=== PATIENT | male | born 1950 | race Hispanic/Latino ===

== ENCOUNTER 2016-12-16 11:54 | Inpatient (IN) | payer MEDICARE ==
[2016-12-16 12:25] VITALS: BMI 27.3
[2016-12-16] MEDS ORDERED: Sodium Chloride 0.9% 1,000 ML IV STA ×2 (12:56→16:29)
--- NOTE | 2016-12-16 13:12 | ED PDOC ---
Arrival/HPI - General Historian: Patient - History of Present Illness Time/Duration: Other (4/5:00 AM) Symptom Onset: Sudden Symptom Course: Unchanged Activities at Onset: Rest, Light Context: Home - General Chief Complaint: Abdominal Pain Time Seen by Provider: 12/16/16 12:55 - History of Present Illness Narrative History of Present Illness (Text): 12/16/16 13:12 A65 year old male with no known past medical history, presents to the emergency department with left lower quadrant abdominal pain since 4/5 AM. He states that the pain started after he ate a sandwich on the train. The patient denies fevers , chills, headache, dizziness, nausea, vomiting, diarrhea, cough, chest pain, shortness of breath, or any other complaints. (Get Coyne) Past Medical History - Provider Review Nursing Documentation Reviewed: Yes - Infectious Disease Hx of Infectious Diseases: None - Past Medical History Past Medical History: Non-Contributing - Cardiac Hx MS: Yes Hx Pacemaker: No - Neurological Hx Paralysis: No - Renal Hx Kidney Stones: Yes - Hematological/Oncological Hx Anemia: Yes Hx Blood Transfusions: No - Musculoskeletal/Rheumatological Hx Musculoskeletal Disorders: Yes (OSTEOARTHRITIS) - Psychiatric Hx Emotional Abuse: No Hx Physical Abuse: No Hx Substance Use: No - Surgical History Other/Comment: kidney stones - Anesthesia Hx Anesthesia: Yes Hx Anesthesia Reactions: No Hx Malignant Hyperthermia: No - Suicidal Assessment Feels Threatened In Home Enviroment: No Family/Social History - Physician Review Nursing Documentation Reviewed: Yes Family/Social History: No Known Family HX Smoking Status: Former Smoker Hx Alcohol Use: No (RARE) Hx Substance Use: No Allergies/Home Meds Allergies/Adverse Reactions: Allergies No Known Allergies Allergy (Verified 05/22/14 16:22) Home Medications: Home Meds Medication Instructions Recorded Confirmed Atorvastatin [Lipitor] 40 mg PO DAILY 06/15/14 12/16/16 Aspirin [Adult Low Dose Aspirin EC] 1 tab PO DAILY 12/16/16 12/16/16 Physical Exam Vital Signs Reviewed: Yes Temperature: Afebrile Blood Pressure: Hypertensive Pulse: Regular Respiratory Rate: Normal Appearance: Positive for: Well-Appearing, Non-Toxic, Comfortable Pain Distress: None Mental Status: Positive for: Alert and Oriented X 3 - Physical Exam Narrative Physical Exam (Text): - Review of Systems Constitutional: Normal. absent: Fatigue, Weight Change, Fevers Eyes: Normal ENT: Normal Respiratory: Normal absent: SOB, Cough, Sputum Cardiovascular: Normal absent: Chest pain, Palpitations, Syncope Gastrointestinal: (+) LLQ Abdominal pain absent: Diarrhea, Nausea, Vomiting Genitourinary: Normal. absent: Dysuria, Frequency, Hematuria Musculoskeletal: Normal. absent: Arthralgias, Back Pain, Neck Pain Skin: Normal Neurological: Normal absent: Focal Weakness Endocrine: Normal Hemo/Lymphatic: Normal Psychiatric: Normal - Physical exam Patient appears age appropriate, speaking full sentences without difficulty - Systems Exam Head: Present: Atraumatic, Normocephalic Pupils: Present: PERRL Extraocular Muscles: Present: EOMI Conjunctiva: Present: Normal Mouth: Present: Moist Mucous Membranes Neck: Present: Normal Range of Motion. No: MIDLINE TENDERNESS, Paraspinal Tenderness Respiratory/Chest: Present: Clear to Auscultation, Good Air Exchange. No: Respiratory Distress, Accessory Muscle Use, Tachypnic Cardiovascular: Present: Regular Rate and Rhythm, Normal S1, S2, Peripheral Pulses Present. No: Murmurs Abdomen: Present: LLQ Tenderness on Palpation. No: Peritoneal Signs, Rebound, Guarding, Distention Back: Present: Normal Inspection. No: Midline Tenderness, Paraspinal Tenderness Upper Extremity: Present: Normal Inspection. No: Cyanosis, Edema Lower Extremity: Present: Normal Inspection. No: Edema Neurological: Present: GCS=15, Speech Normal, cranial nerves II through XII fully intact with no cerebellar abnormality, neuro-sensory fully intact. No focal neurological deficits. Skin: Present: Warm, Dry, Normal Color. No: Rashes Lymphatic: Present: OX3, NI, NC Psychiatric: Present: Alert, Oriented x 3, Normal Insight, Normal Concentration (Zelikson,Get) Vital Signs Temp Pulse Resp BP Pulse Ox 12/16/16 15:50 66 18 144/78 99 12/16/16 14:00 65 18 97 12/16/16 12:30 98.9 F 66 18 157/102 H 95 Medical Decision Making - Lab Interpretations I have reviewed the lab results: Yes ED Course and Treatment: 12/16/16 13:20 Impression: A 65 year old male presents with LLQ abdominal pain. On exam, LLQ tenderness on palpation. Differential Diagnosis included but are not limited to: diverticular disease vs. nonspecific abdominal pain. Plan: -- Abdomen/Pelvis CT -- Urinalysis -- Blood Culture -- Labs -- Toradol and IV FLuids -- Reassess and disposition Progress Notes: 12/16/16 16:30 CT Radiologist's IMPRESSION: 8 mm proximal left ureteral stone with moderate to severe hydronephrosis and perinephric stranding. flomax ordered chris Galdamez, awaiting callback 12/16/16 16:[address] Castellon in detail. Asked to keep pt NPO past midnight, give rocephin, and admit to hospitalist pt in no distress at this time, aware of and agrees with plan 12/16/16 17:[address] La Nena Sutherland, asked to call med. service dw Dr. Guzman, covering for Dr. Masterson, accepted admission to Dr. Masterson's service (OtiliodavionGet) 12/16/16 19:[address] guzman bedside o change admission to hospitalist.dr au accepts ( Marlon Jaffe) - Lab Interpretations Lab Results: 12/16/16 14:14 12/16/16 14:14 Lab Results 12/16/16 14:14: PT 11.3, INR 1.05, APTT 24.3 12/16/16 14:14: Sodium 142, Potassium 4.3, Chloride 104, Carbon Dioxide 25, Anion Gap 17, BUN 23 H, Creatinine 1.6 H, Est GFR ( Amer) 52, Est GFR ( Non-Af Amer) 43, Random Glucose 155 H, Calcium 10.0, Total Bilirubin 1.0, AST 34 , ALT 59 H, Alkaline Phosphatase 75, Total Protein 7.1, Albumin 4.4, Globulin 2.7, Albumin/Globulin Ratio 1.6, Lipase 223 12/16/16 14:14: WBC 9.7 D, RBC 4.62, Hgb 14.1, Hct 40.3 L, MCV 87.2, MCH 30.5, MCHC 35.0, RDW 12.6, Plt Count 204, MPV 9.9, Gran % 87.6 H, Lymph % (Auto) 9.0 L , [place] % (Auto) 3.3, Eos % (Auto) 0.0 L, Baso % (Auto) 0.1, Gran # 8.48 H, Lymph # 0.9 L, [place] # 0.3, Eos # 0.0, Baso # 0.01, Neutrophils % (Manual) 87 H, Band Neutrophils % 2, Lymphocytes % (Manual) 10 L, Monocytes % (Manual) 1, Platelet Evaluation Normal, Anisocytosis (manual) Slight - RAD Interpretation Radiology Orders: 12/16/16 12:55 ABD & PELVIS IV CONTRAST ONLY [CT] Stat - Medication Orders Current Medication Orders: Discontinued Medications Sodium Chloride (Sodium Chloride 0.9%) 1,000 mls @ 1,000 mls/hr IV .Q1H STA Stop: 12/16/16 13:55 Last Admin: 12/16/16 14:02 Dose: 1,000 mls/hr Sodium Chloride (Sodium Chloride 0.9%) 1,000 mls @ 1,000 mls/hr IV .Q1H STA Stop: 12/16/16 17:28 Last Admin: 12/16/16 17:05 Dose: 1,000 mls/hr Ceftriaxone Sodium (Rocephin 1 Gram Ivpb) 1 gm in 100 mls @ 200 mls/hr IV STAT STA PRN Reason: Protocol Stop: 12/16/16 17:09 Last Admin: 12/16/16 17:04 Dose: 200 mls/hr Iohexol (Omnipaque 350 100 Ml) Confirm Administered Dose 350 mg .ROUTE .STK-MED ONE Stop: 12/16/16 14:43 Ketorolac Tromethamine (Toradol) 15 mg IVP STAT STA Stop: 12/16/16 12:57 Last Admin: 12/16/16 14:02 Dose: 15 mg Re-Assess: KIN Pain Assessment Document 12/16/16 15:02 [place] (Rec: 12/16/16 16:34 [id number] Pain Reassessment Is this a pain reassessment? Yes Sleep Is patient sleeping during reassessment? Yes Tamsulosin HCl (Flomax) 0.4 mg PO STAT STA Stop: 12/16/16 16:30 Last Admin: 12/16/16 17:04 Dose: 0.4 mg - Scribe Statement The provider has reviewed the documentation as recorded by the Scribe - Scribe Statement Gala Bernardo Provider Scribe Attestation: All medical record entries made by the Scribe were at my direction and personally dictated by me. I have reviewed the chart and agree that the record accurately reflects my personal performance of the history, physical exam, medical decision making, and the department course for this patient. I have also personally directed, reviewed, and agree with the discharge instructions and disposition. (Get Coyne) Disposition/Present on Arrival - Present on Arrival Any Indicators Present on Arrival: No History of DVT/PE: No History of Uncontrolled Diabetes: No Urinary Catheter: No History of Decub. Ulcer: No History Surgical Site Infection Following: None - Disposition Have Diagnosis and Disposition been Completed?: Yes Disposition Time: 17:09 Patient Plan: Admission - Disposition Diagnosis: Ureteral colic Disposition: HOSPITALIZED Condition: STABLE
[2016-12-16 14:21] LABS: BASO # 0.01 K/mm3 (0.0-2.0); BASO % 0.1 % (0.0-3.0); GRAN # 8.48 (1.4-6.5); GRAN % 87.6 % (50.0-68.0); HEMATOCRIT 40.3 % (42.0-52.0); LYMPH # 0.9 (1.2-3.4); MEAN CELL VOLUME 87.2 fl (80.0-105.0); MEAN CORPUSCULAR HEMOGLOBIN 30.5 pg (25.0-35.0); MEAN PLATELET VOLUME 9.9 fl (7.0-11.0); MONO # 0.3 (0.1-0.6); MONO % 3.3 % (1.0-6.0); PLATELET COUNT 204 10^3/uL (120.0-450.0); RED CELL DISTRIBUTION WIDTH 12.6 % (11.5-14.5); WHITE BLOOD COUNT 9.7 10^3/ul (4.5-11.0)
[2016-12-16 14:28] LABS: ALB/GLOB RATIO 1.6 (1.1-1.8); POTASSIUM 4.3 mmol/L (3.6-5.0); TOTAL PROTEIN 7.1 g/dL (5.8-8.3)
[2016-12-16 14:35] LABS: INR 1.05 (0.93-1.08); PARTIAL THROMBOPLASTIN TIME 24.3 Seconds (23.7-30.8)
[2016-12-16] MEDS ORDERED: Iohexol 350 MG/100 ML VIAL ONE (14:42)
[2016-12-16 14:51] LABS: ANISOCYTOSIS SLIGHT; BAND 2 % (0-2); NEUTROPHIL 87 % (50.0-70.0); PLATELET ESTIMATE NORMAL (NORMAL)
--- NOTE | 2016-12-16 16:03 | CT ---
PROCEDURE: CT Abdomen and Pelvis with contrast HISTORY: abd pain COMPARISON: None. TECHNIQUE: Contrast dose: 100 cc of Omni 350 Radiation dose: Total exam DLP = 624 mGy-cm. This CT exam was performed using one or more of the following dose reduction techniques: Automated exposure control, adjustment of the mA and/or kV according to patient size, and/or use of iterative reconstruction technique. FINDINGS: LOWER THORAX: Unremarkable. LIVER: Unremarkable. No gross lesion or ductal dilatation. GALLBLADDER AND BILE DUCTS: Unremarkable. PANCREAS: Unremarkable. No gross lesion or ductal dilatation. SPLEEN: Unremarkable. ADRENALS: Unremarkable. No mass. KIDNEYS AND URETERS: There is an obstructing stone in the left proximal ureter measuring 8 mm in diameter seen on axial image 74 and coronal image 54. There is moderate to severe hydronephrosis and extensive perinephric stranding. VASCULATURE: Unremarkable. No aortic aneurysm. BOWEL: Unremarkable. No obstruction. No gross mural thickening. APPENDIX: Normal appendix. PERITONEUM: Unremarkable. No free fluid. No free air. LYMPH NODES: Unremarkable. No enlarged lymph nodes. BLADDER: There is a stone seen in the right side of the bladder measuring 3 x 10 mm. REPRODUCTIVE: Unremarkable. BONES: No acute fracture. OTHER FINDINGS: None. IMPRESSION: 8 mm proximal left ureteral stone with moderate to severe hydronephrosis and perinephric stranding. 3 x 10 mm stone in the bladder
[2016-12-16] MEDS ORDERED: cefTRIAXone 1 gm 1 GM/100 ML BAG IV STA (16:40)
[2016-12-16 18:35] LABS: URINE BILIRUBIN NEGATIVE (NEGATIVE); URINE BLOOD NEGATIVE (NEGATIVE); URINE GLUCOSE (UA) 100 mg/dL (NEGATIVE); URINE KETONE NEGATIVE (NEGATIVE); URINE LEUKOCYTE ESTERASE NEGATIVE Leu/uL (NEGATIVE); URINE PROTEIN NEGATIVE mg/dL (<30 mg/dL); URINE UROBILINOGEN 0.2 E.U./dL (<1 E.U./dL)
[2016-12-16 18:39] LABS: URINE APPEARANCE CLEAR (CLEAR); URINE COLOR YELLOW (YELLOW)
[2016-12-16] MEDS ORDERED: Morphine 2 mg/ml ISec IVP PRN (19:19)
[2016-12-16] MEDS: Sodium Chloride 0.9% 1,000 ML IV SCH (20:58)
--- NOTE | 2016-12-16 21:00 | CP.PCM.HP ---
<Darien Ca - Last Filed: 12/16/16 21:18> History of Present Illness - History of Present Illness History of Present Illness: cc: suprapubic pain HPI: Patient is a 65yo male with past medical history of hyperlipidemia, nephrolithiasis and OK that presents c/o suprapubic pain that had been ongoing for the past day. Patient reports that he has a history of nephrolithiasis for which he sees Dr. Castellon and that this pain felt similar to previous episodes. He reports that the pain is tolerable, non-radiating and feels pressure like in quality. He denied nausea, however induced vomiting once in an attempt to relieve the pain. On arrival to the ED, a CT abd/pelvis was done which was notable for an 8mm proximal left ureteral stone with moderate to severe hydronephrosis and perinephritic stranding. Denied chest pain, palpitations, SOB , fever, chills, cough, flank pain, hematuria, abdominal pain, focal weakness, numbness, tingling. 12point ROS as per HPI above, otherwise negative PMHx: HLD, OK (2008), Nephrolithiasis PSHx: hernia repair Allergies: NKDA Social Hx: Former tobacco use (4yrs from age [age]); Social alcohol use; Admitted to smoking marijuana and using acid long ago; employed as a [employer] truck driver Family Hx: Father: DM2, unknown malignancy; Mother: RCC PMD: Dr. Watson Urologist: Dr. Castellon Present on Admission - Present on Admission Any Indicators Present on Admission: No Past Patient History - Infectious Disease Hx of Infectious Diseases: None - Past Social History Smoking Status: Former Smoker - CARDIAC Hx Heart Attack: Yes Hx Pacemaker: No - NEUROLOGICAL Hx Paralysis: No - RENAL Hx Kidney Stones: Yes - HEMATOLOGICAL/ONCOLOGICAL Hx Anemia: Yes Hx Blood Transfusions: No - MUSCULOSKELETAL/RHEUMATOLOGICAL Hx Musculoskeletal Disorders: Yes (OSTEOARTHRITIS) - PSYCHIATRIC Hx Emotional Abuse: No Hx Physical Abuse: No Hx Substance Use: No - SURGICAL HISTORY Other/Comment: kidney stones - ANESTHESIA Hx Anesthesia: Yes Hx Anesthesia Reactions: No Hx Malignant Hyperthermia: No Meds Allergies/Adverse Reactions: Allergies Allergy/AdvReac Type Severity Reaction Status Date / Time No Known Allergies Allergy Verified 05/22/14 16:22 Physical Exam - Constitutional Appears: Well, Non-toxic, No Acute Distress - Head Exam Head Exam: ATRAUMATIC, NORMAL INSPECTION, NORMOCEPHALIC - Eye Exam Eye Exam: EOMI, PERRL - ENT Exam ENT Exam: Mucous Membranes Moist - Neck Exam Neck exam: Positive for: Normal Inspection - Respiratory Exam Respiratory Exam: Clear to Auscultation Bilateral. absent: Rales, Rhonchi, Wheezes - Cardiovascular Exam Cardiovascular Exam: RRR, +S1, +S2. absent: Gallop, Rubs - GI/Abdominal Exam GI & Abdominal Exam: Soft. absent: Distended, Firm, Guarding, Rebound, Tenderness - Extremities Exam Extremities exam: Positive for: normal inspection, pedal pulses present. Negative for: calf tenderness, pedal edema, tenderness - Neurological Exam Neurological exam: Alert, CN II-XII Intact, Oriented x3 - Psychiatric Exam Psychiatric exam: Normal Affect, Normal Mood - Skin Skin Exam: Dry, Intact, Normal Color, Warm Results - Vital Signs Recent Vital Signs: Last Vital Signs Temp 98.9 F 12/16/16 12:30 Pulse 78 12/16/16 19:17 Resp 18 12/16/16 19:17 BP 161/77 H 12/16/16 19:17 Pulse Ox 97 12/16/16 19:17 - Labs Result Diagrams: 12/16/16 14:14 12/16/16 14:14 Labs: Laboratory Results - last 24 hr 12/16/16 17:15 Urine Color Yellow Urine Appearance Clear Urine pH 6.0 Ur Specific [place] 1.020 Urine Protein Negative Urine Glucose (UA) 100 H Urine Ketones Negative Urine Blood Negative Urine Nitrate Negative Urine Bilirubin Negative Urine Urobilinogen 0.2 Ur Leukocyte Esterase Negative Assessment & Plan - Assessment and Plan (Free Text) Plan: 65yo male with history of HLD, nephrolithiasis and OK presents c/o suprapubic pain secondary to 8mm proximal ureteral stone with mod-severe hydronephrosis and perinephritic standing 1. Acute Nephrolithiasis -CT abd/pelvis reviewed; revealed 8mm proximal ureteral stone with mod-severe hydronephrosis and perinephritic standing and 3x10mm stone in the bladder ( refer to full report) -Patient started on flomax and rocephin per urology recommendations -NS @ 100cc/hr -Pain control; morphine 2mg q4h PRN -Zofran 4mg q4h PRN for nausea/vomiting -Strain urine -Strict I's and O's -NPO past midnight for urological procedure with Dr. Castellon in AM -Urology consulted 2. Hyperlipidemia -Continue home statin 3. GI/DVT prophylaxis -protonix/SCD's Patient seen and case discussed with attending, Dr. Landry - Date & Time Date: 12/16/16 Time: 21:01 <Sawyer Landry - Last Filed: 12/16/16 22:15> Results - Vital Signs Recent Vital Signs: Last Vital Signs Temp 98.9 F 12/16/16 12:30 Pulse 78 12/16/16 19:17 Resp 18 12/16/16 19:17 BP 161/77 H 12/16/16 19:17 Pulse Ox 97 12/16/16 19:17 - Labs Result Diagrams: 12/16/16 14:14 12/16/16 14:14 Labs: Laboratory Results - last 24 hr 12/16/16 17:15 Urine Color Yellow Urine Appearance Clear Urine pH 6.0 Ur Specific [place] 1.020 Urine Protein Negative Urine Glucose (UA) 100 H Urine Ketones Negative Urine Blood Negative Urine Nitrate Negative Urine Bilirubin Negative Urine Urobilinogen 0.2 Ur Leukocyte Esterase Negative Attending/Attestation - Attestation I have personally seen and examined this patient.: Yes I have fully participated in the care of the patient.: Yes I have reviewed all pertinent clinical information: Yes Notes (Text): 12/16/16 22:10 Patient was seen when he was in bed # 8 in the ER. Agree with history , physical examination , assessment and plan. Following imprssions should be inserted. LLQ abdoominal pain. Left proximal Ureteric calculus. Bladder calculus. Left hydronephrosis. OK CAD Hx Cardiac cath. HTN HLD Renal calculi Anemia OA Hyperglycemia Elevated ALT Renal insufficiency Former smoker. Alcohol use in past. Marijuana use in past. Family history of cancer.
[2016-12-17] MEDS: Sodium Chloride 0.9% 1,000 ML IV SCH ×2 (06:00→22:55)
[2016-12-17 08:12] LABS: BASO # 0.01 K/mm3 (0.0-2.0); BASO % 0.1 % (0.0-3.0); EOS % 0.4 % (1.5-5.0); GRAN # 6.27 (1.4-6.5); GRAN % 75.7 % (50.0-68.0); HEMATOCRIT 37.6 % (42.0-52.0); LYMPH # 1.4 (1.2-3.4); LYMPH % 16.4 % (22.0-35.0); MEAN CELL VOLUME 87.4 fl (80.0-105.0); MEAN CORPUSCULAR HEMOGLOBIN 30.2 pg (25.0-35.0); MEAN CORPUSCULAR HGB CONC 34.6 g/dl (31.0-37.0); MEAN PLATELET VOLUME 9.5 fl (7.0-11.0); MONO # 0.6 (0.1-0.6); MONO % 7.4 % (1.0-6.0); RED CELL DISTRIBUTION WIDTH 12.6 % (11.5-14.5); WHITE BLOOD COUNT 8.3 10^3/ul (4.5-11.0)
[2016-12-17 08:24] LABS: ALB/GLOB RATIO 1.5 (1.1-1.8); BILIRUBIN,TOTAL 1.2 mg/dL (0.2-1.3); CALCIUM 8.8 mg/dL (8.4-10.5); TOTAL PROTEIN 5.9 g/dL (5.8-8.3)
[2016-12-17] MEDS: cefTRIAXone 1 gm 1 GM/100 ML BAG IVPB SCH (10:18)
[2016-12-17] MEDS ORDERED: Iohexol 240 (50 ml) ONE (10:44)
[2016-12-17] MEDS ORDERED: Lidocaine 2% Jelly (Uro-Jet) ONE (10:44)
--- NOTE | 2016-12-17 11:04 | CP.PCM.PN ---
<ANAMASSIEL - Last Filed: 12/17/16 11:01> Subjective - Date & Time of Evaluation Date of Evaluation: 12/17/16 Time of Evaluation: 11:01 - Subjective Subjective: Medicine Progress Note: Pt seen and examined at bedside. Pt states that pain is currently controlled. Pt denies current hematuria, but states there was a little blood a few days ago. Pt acknowledges procedure today with Dr. Castellon for nephrolithiasis. Pt denies CP, SOB, n/v/d, abdominal pain, DEE, fevers, chills, or dizziness. Objective - Vital Signs/Intake and Output Vital Signs (last 24 hours): Temp Pulse Resp BP Pulse Ox 98.4 F 60 20 124/74 97 12/17/16 10:44 12/17/16 10:44 12/17/16 10:44 12/17/16 10:44 12/17/16 10:44 Intake and Output: 12/17/16 12/17/16 06:59 18:59 Intake Total 240 Output Total 650 Balance -410 - Medications Medications: Current Medications Atorvastatin Calcium (Lipitor) 40 mg PO DIN [facility] Sodium Chloride (Sodium Chloride 0.9%) 1,000 mls @ 100 mls/hr IV .Q10H [facility] Last Admin: 12/17/16 06:00 Dose: 100 mls/hr Ceftriaxone Sodium (Rocephin 1 Gram Ivpb) 1 gm in 100 mls @ 100 mls/hr IVPB DAILY [facility] PRN Reason: Protocol Last Admin: 12/17/16 10:18 Dose: 100 mls/hr Morphine Sulfate (Morphine) 2 mg IVP Q4H PRN PRN Reason: Pain, severe (8-10) Ondansetron HCl (Zofran Inj) 4 mg IVP Q4H PRN PRN Reason: Nausea/Vomiting Pantoprazole Sodium (Protonix Inj) 40 mg IVP DAILY [facility] Last Admin: 12/17/16 10:17 Dose: 40 mg Tamsulosin HCl (Flomax) 0.4 mg PO DAILY [facility] Last Admin: 12/17/16 10:17 Dose: Not Given - Labs Labs: 12/17/16 07:45 12/17/16 07:45 PT 11.3 Seconds (9.9-11.8) 12/16/16 14:14 INR 1.05 (0.93-1.08) 12/16/16 14:14 APTT 24.3 Seconds (23.7-30.8) 12/16/16 14:14 - Constitutional Appears: No Acute Distress - Head Exam Head Exam: ATRAUMATIC, NORMOCEPHALIC - Eye Exam Eye Exam: EOMI, PERRL - ENT Exam ENT Exam: Mucous Membranes Moist - Neck Exam Neck Exam: Full ROM. absent: Lymphadenopathy, Tenderness, Thyromegaly - Respiratory Exam Respiratory Exam: Clear to Ausculation Bilateral. absent: Rales, Rhonchi, Wheezes - Cardiovascular Exam Cardiovascular Exam: RRR. absent: Gallop, Rubs, Murmur - GI/Abdominal Exam GI & Abdominal Exam: Soft. absent: Distended, Guarding, Tenderness, Organomegaly, Rebound - Extremities Exam Extremities Exam: Normal Inspection - Back Exam Back Exam: NORMAL INSPECTION. absent: CVA tenderness (L), CVA tenderness (R) - Neurological Exam Neurological Exam: Alert, Awake, Oriented x3 - Psychiatric Exam Psychiatric exam: Normal Affect, Normal Mood - Skin Skin Exam: Dry, Intact, Normal Color, Warm Assessment and Plan - Assessment and Plan (Free Text) Assessment: 65yo male with history of HLD, nephrolithiasis and AR presents c/o suprapubic pain secondary to 8mm proximal ureteral stone with mod-severe hydronephrosis and perinephritic standing Plan: 1. Acute Nephrolithiasis - Procedure today with urology, NPO - CT abd/pelvis reviewed; revealed 8mm proximal ureteral stone with mod-severe hydronephrosis and perinephritic standing and 3x10mm stone in the bladder - Cont flomax and rocephin per urology recommendations - NS @ 100cc/hr - Pain control; morphine 2mg q4h PRN - Zofran 4mg q4h PRN for nausea/vomiting - Strain urine - Strict I's and O's - NPO past midnight for urological procedure with Dr. Castellon in AM - Urology consulted 2. Acute Kidney Injury - Cr 1.5, elevated likely 2/2 to hydronephrosis, nephrolithiasis - NS @ 100 cc/hr - Pain control 3. Hyperlipidemia - Continue home statin 4. GI/DVT prophylaxis - protonix/SCD's Patient discussed with attending, Dr. Saleem. <Harper,Anwar A - Last Filed: 12/17/16 15:49> Objective - Vital Signs/Intake and Output Vital Signs (last 24 hours): Temp Pulse Resp BP Pulse Ox 97.9 F 58 L 20 122/66 97 12/17/16 13:00 12/17/16 13:00 12/17/16 13:00 12/17/16 13:00 12/17/16 13:00 Intake and Output: 12/17/16 12/17/16 06:59 18:59 Intake Total 240 Output Total 650 Balance -410 - Medications Medications: Current Medications Atorvastatin Calcium (Lipitor) 40 mg PO DIN [facility] Hydromorphone HCl (Dilaudid) 0.5 mg IVP Q15M PRN PRN Reason: Pain, moderate (4-7) Sodium Chloride (Sodium Chloride 0.9%) 1,000 mls @ 100 mls/hr IV .Q10H [facility] Last Admin: 12/17/16 06:00 Dose: 100 mls/hr Ceftriaxone Sodium (Rocephin 1 Gram Ivpb) 1 gm in 100 mls @ 100 mls/hr IVPB DAILY [facility] PRN Reason: Protocol Last Admin: 12/17/16 10:18 Dose: 100 mls/hr Morphine Sulfate (Morphine) 2 mg IVP Q4H PRN PRN Reason: Pain, severe (8-10) Ondansetron HCl (Zofran Inj) 4 mg IVP Q4H PRN PRN Reason: Nausea/Vomiting Pantoprazole Sodium (Protonix Inj) 40 mg IVP DAILY [facility] Last Admin: 12/17/16 10:17 Dose: 40 mg Phenazopyridine HCl (Pyridium) 200 mg PO TID [facility] - Labs Labs: 12/17/16 07:45 12/17/16 07:45 PT 11.3 Seconds (9.9-11.8) 12/16/16 14:14 INR 1.05 (0.93-1.08) 12/16/16 14:14 APTT 24.3 Seconds (23.7-30.8) 12/16/16 14:14 Attending/Attestation - Attestation I have personally seen and examined this patient.: Yes I have fully participated in the care of the patient.: Yes I have reviewed all pertinent clinical information, including history, physical exam and plan: Yes Notes (Text): 12/17/16 15:46 65 year old male with past medical history of dyslipidemia and nephrolithiasis who presented with complaint of suprapubic pain. He was foudn to have 8 mm proximal ureteral stone with moderate to sever hydronephrosis and perinephric stranding. He also has BELTRAN with creatinine of 1.5. He is NPO, on iv fluids, analgesics and antibiotics. Plan is for urology procedure today. Will follow up with urology recommendations. Elio Saleem MD Hospitalist.
[2016-12-17] MEDS ORDERED: Midazolam 2 MG/2 ML VIAL ONE (11:33)
[2016-12-17] MEDS ORDERED: Propofol 10 mg/ml Inj (20 ML) ONE (11:33)
[2016-12-17] MEDS ORDERED: Lidocaine 2% Inj (20ml) ONE (11:41)
[2016-12-17] MEDS ORDERED: HYDROmorphone 0.5 mg/0.5 ml ISec IVP PRN (12:05)
[2016-12-17] MEDS ORDERED: Sodium Chloride 0.9% 1,000 ML IV SCH (12:15)
--- NOTE | 2016-12-17 12:51 | PN ---
DATE: 12/17/2016 The patient had placement of a left pigtail stent. If he remains control with no fever for the rest of the day and through the night he can be discharged in the morning. He will call my office on and I will arrange for an elective ESWL of the upper ureteral calculus. Elton Castellon MD
--- NOTE | 2016-12-17 13:55 | OP ---
PROCEDURE DATE: 12/17/2016 PREOPERATIVE DIAGNOSIS: Obstructing upper left ureteral calculus. POSTOPERATIVE DIAGNOSIS: Obstructing upper left ureteral calculus. PROCEDURES: Cystoscopy and evacuation of bladder calculi and insertion of left pigtail stent. SURGEON: Dr. Castellon. TYPE OF ANESTHESIA: LMA. DESCRIPTION OF PROCEDURE: After adequate LMA anesthesia was given, the patient was placed lithotomy, prepped and draped in the usual manner. A 22-Italian cystourethroscope was introduced under direct vision. The anterior urethra was normal. 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 Bladder showed gravel in the bladder, which was extracted with forceps and irrigation as well. There were no tumors or foreign bodies. Orifices normal in appearance, location was clear from the right, no efflux on the left. A 0.035 sensor wire was advanced up to left ureter under fluoroscopic guidance, there appeared to be a calculus opposite L4. The sensor wire went into the kidney over this, a 6-Italian 26 cm pigtail stent was placed and properly placed, and the sensor wire was removed. They coiled nicely in the left renal pelvis and in the bladder. Upon initial introduction of the cystoscope, urine was obtained for culture. The bladder was drained, the cystoscope was removed, the patient was awakened and brought to the recovery room in good condition. Elton Castellon MD
--- NOTE | 2016-12-17 15:33 | RAD ---
PROCEDURE: Fluoroscopy up to 1 hour HISTORY: LEFT CALCULI / STENT INSERTION COMPARISON: TECHNIQUE: Fluoroscopy up to 1 hour. 14 seconds of fluoro time. Five images were submitted FINDINGS: The study shows placement of a left ureteral stent IMPRESSION: As above
--- NOTE | 2016-12-17 16:00 | RAD ---
PROCEDURE: Abdomen three views HISTORY: is ureteral stone visible COMPARISON: TECHNIQUE: Three views FINDINGS: There is a left ureteral stent. There are no stones seen along side the stent. There is an 11 mm stone in the lower pole of the left kidney IMPRESSION: As above
--- NOTE | 2016-12-17 16:57 | CON ---
DATE: 12/17/2016 CHIEF COMPLAINT: Left flank pain. HISTORY OF PRESENT ILLNESS: The patient is a 65-year-old man who came to the ER complaining of severe left flank pain. A CAT scan was done which showed an 8 mm obstructing upper ureteral calculus. No fever or chills. He was admitted for pain control and placement of a left pigtail stent. He was kept n.p.o. and the stent will be placed this morning. The pain was colic in nature. He did have some vomiting and nausea. The CAT scan show perinephric stranding and hydronephrosis. PAST MEDICAL HISTORY: Past history is significant for prior nephrolithiasis and [place], 8 years ago. Past surgeries include hernia repair. ALLERGIES: HE HAS NO ALLERGIES. SOCIAL HISTORY: He no longer smokes. He drinks alcohol socially. FAMILY HISTORY: Noncontributory. REVIEW OF SYMPTOMS: Currently, no symptoms are referable to the head, eyes, ears or throat. No cardiac or respiratory symptoms. No GI symptoms. No dermatologic or psychiatric symptoms. PHYSICAL EXAMINATION: VITAL SIGNS: Afebrile. Pulse 60, blood pressure 124/74, respirations 20. HEENT: Normocephalic. Sclerae clear. Conjunctiva: Noninjected. BACK: Mild left CVA pain. ABDOMEN: No rebound. No guarding. GENITALIA: Penis, testicles, cord, epididymis all within normal limits. SKIN: No peripheral edema. LABORATORY DATA: Lab work shows a white count of 8300, hemoglobin 13. Coagulations are normal. Chemistry: Creatinine of 1.5 with a BUN of 18. PLAN: The plan is to place a pigtail stent and the CAT scan also showed some calculi in the bladder which will be dealt with at the time of the cystoscopy. Elton Castellon MD
--- NOTE | 2016-12-17 19:16 | CARD ---
APPROVED REPORT EKG Measurement Heart [id number] <Conclusion> Normal sinus rhythm Left axis deviation Septal infarct, age undetermined Inferior infarct, age undetermined Abnormal ECG
[2016-12-18 07:32] LABS: BASO # 0.01 K/mm3 (0.0-2.0); BASO % 0.1 % (0.0-3.0); EOS # 0.1 (0.0-0.7); EOS % 1.2 % (1.5-5.0); GRAN # 5.39 (1.4-6.5); GRAN % 74.8 % (50.0-68.0); HEMATOCRIT 34.9 % (42.0-52.0); LYMPH # 1.3 (1.2-3.4); LYMPH % 17.9 % (22.0-35.0); MEAN CELL VOLUME 86.6 fl (80.0-105.0); MEAN CORPUSCULAR HEMOGLOBIN 29.8 pg (25.0-35.0); MEAN CORPUSCULAR HGB CONC 34.4 g/dl (31.0-37.0); MEAN PLATELET VOLUME 9.4 fl (7.0-11.0); MONO # 0.4 (0.1-0.6); RED CELL DISTRIBUTION WIDTH 12.5 % (11.5-14.5); WHITE BLOOD COUNT 7.2 10^3/ul (4.5-11.0)
[2016-12-18 07:47] LABS: ALB/GLOB RATIO 1.3 (1.1-1.8); ALKALINE PHOSPHATASE 60 U/L (38-133); ALT/SGPT 40 U/L (7-56); AST/SGOT 29 U/L (15-59); BILIRUBIN,TOTAL 1.3 mg/dL (0.2-1.3); BLOOD UREA NITROGEN 16 mg/dL (7-21); CALCIUM 8.3 mg/dL (8.4-10.5); CARBON DIOXIDE 24 mmol/L (21-33); CHLORIDE 110 mmol/L (98-107); GFR AFRICAN-AMERICAN > 60; GLUCOSE,RANDOM 135 mg/dL (70-110); POTASSIUM 3.6 mmol/L (3.6-5.0); SODIUM 141 mmol/L (132-148); TOTAL PROTEIN 5.4 g/dL (5.8-8.3)
[2016-12-18 08:45] VITALS: BP 125/76; PULSE 57; RESP 18; TEMP 98.8; O2SAT 95
--- NOTE | 2016-12-18 11:34 | CP.PCM.DIS ---
<MASSIEL PEREZ - Last Filed: 12/18/16 11:20> Provider - Provider Date of Admission: 12/16/16 17:09 Attending physician: Elio Saleem MD Primary care physician: NO PRIMARY CARE PROVIDER Consults: Urology: Ravinder Time Spent in preparation of Discharge (in minutes): 45 Hospital Course - Lab Results Lab Results: Most Recent Lab Values WBC 7.2 10^3/ul (4.5-11.0) 12/18/16 07:00 RBC 4.03 10^6/uL (3.5-6.1) 12/18/16 07:00 Hgb 12.0 g/dL (14.0-18.0) L 12/18/16 07:00 Hct 34.9 % (42.0-52.0) L 12/18/16 07:00 MCV 86.6 fl (80.0-105.0) 12/18/16 07:00 MCH 29.8 pg (25.0-35.0) 12/18/16 07:00 MCHC 34.4 g/dl (31.0-37.0) 12/18/16 07:00 RDW 12.5 % (11.5-14.5) 12/18/16 07:00 Plt Count 179 10^3/uL (120.0-450.0) 12/18/16 07:00 MPV 9.4 fl (7.0-11.0) 12/18/16 07:00 Gran % 74.8 % (50.0-68.0) H 12/18/16 07:00 Lymph % (Auto) 17.9 % (22.0-35.0) L 12/18/16 07:00 Titus % (Auto) 6.0 % (1.0-6.0) 12/18/16 07:00 Eos % (Auto) 1.2 % (1.5-5.0) L 12/18/16 07:00 Baso % (Auto) 0.1 % (0.0-3.0) 12/18/16 07:00 Gran # 5.39 (1.4-6.5) 12/18/16 07:00 Lymph # 1.3 (1.2-3.4) 12/18/16 07:00 Titus # 0.4 (0.1-0.6) 12/18/16 07:00 Eos # 0.1 (0.0-0.7) 12/18/16 07:00 Baso # 0.01 K/mm3 (0.0-2.0) 12/18/16 07:00 Neutrophils % (Manual) 87 % (50.0-70.0) H 12/16/16 14:14 Band Neutrophils % 2 % (0-2) 12/16/16 14:14 Lymphocytes % (Manual) 10 % (22.0-35.0) L 12/16/16 14:14 Monocytes % (Manual) 1 % (1.0-6.0) 12/16/16 14:14 Platelet Evaluation Normal (NORMAL) 12/16/16 14:14 Anisocytosis (manual) Slight 12/16/16 14:14 PT 11.3 Seconds (9.9-11.8) 12/16/16 14:14 INR 1.05 (0.93-1.08) 12/16/16 14:14 APTT 24.3 Seconds (23.7-30.8) 12/16/16 14:14 Sodium 141 mmol/L (132-148) 12/18/16 07:00 Potassium 3.6 mmol/L (3.6-5.0) 12/18/16 07:00 Chloride 110 mmol/L (98-107) H 12/18/16 07:00 Carbon Dioxide 24 mmol/L (21-33) 12/18/16 07:00 Anion Gap 11 (10-20) 12/18/16 07:00 BUN 16 mg/dL (7-21) 12/18/16 07:00 Creatinine 1.1 mg/dL (0.5-1.4) 12/18/16 07:00 Est GFR ( Amer) > 60 12/18/16 07:00 Est GFR (Non-Af Amer) > 60 12/18/16 07:00 Random Glucose 135 mg/dL (70-110) H 12/18/16 07:00 Calcium 8.3 mg/dL (8.4-10.5) L 12/18/16 07:00 Total Bilirubin 1.3 mg/dL (0.2-1.3) 12/18/16 07:00 AST 29 U/L (15-59) 12/18/16 07:00 ALT 40 U/L (7-56) 12/18/16 07:00 Alkaline Phosphatase 60 U/L (38-133) 12/18/16 07:00 Total Protein 5.4 g/dL (5.8-8.3) L 12/18/16 07:00 Albumin 3.1 g/dL (3.0-4.8) 12/18/16 07:00 Globulin 2.3 gm/dL 12/18/16 07:00 Albumin/Globulin Ratio 1.3 (1.1-1.8) 12/18/16 07:00 Lipase 223 U/L (23-300) 12/16/16 14:14 Urine Color Yellow (YELLOW) 12/16/16 17:15 Urine Appearance Clear (CLEAR) 12/16/16 17:15 Urine pH 6.0 (4.7-8.0) 12/16/16 17:15 Ur Specific [place] 1.020 (1.005-1.035) 12/16/16 17:15 Urine Protein Negative mg/dL (<30 mg/dL) 12/16/16 17:15 Urine Glucose (UA) 100 mg/dL (NEGATIVE) H 12/16/16 17:15 Urine Ketones Negative mg/dL (NEGATIVE) 12/16/16 17:15 Urine Blood Negative (NEGATIVE) 12/16/16 17:15 Urine Nitrate Negative (NEGATIVE) 12/16/16 17:15 Urine Bilirubin Negative (NEGATIVE) 12/16/16 17:15 Urine Urobilinogen 0.2 E.U./dL (<1 E.U./dL) 12/16/16 17:15 Ur Leukocyte Esterase Negative Josette/uL (NEGATIVE) 12/16/16 17:15 - Hospital Course Hospital Course: Patient is a 65 yo male with past medical history of hyperlipidemia, nephrolithiasis and CT that presents c/o suprapubic pain that had been ongoing for the past day. Patient reports that he has a history of nephrolithiasis for which he sees Dr. Castellon and that this pain felt similar to previous episodes. He reports that the pain is tolerable, non-radiating and feels pressure like in quality. He denied nausea, however induced vomiting once in an attempt to relieve the pain. On arrival to the ED, a CT abd/pelvis was done which was notable for an 8mm proximal left ureteral stone with moderate to severe hydronephrosis and perinephritic stranding. Denied chest pain, palpitations, SOB , fever, chills, cough, flank pain, hematuria, abdominal pain, focal weakness, numbness, tingling. In the ED, labs and imaging were obtained. Labs were unremarkable. EKG showed NSR as well as old septal/inferior infarct. Abdominal CT showed 8 mm proximal left ureteral stone with moderate to severe hydronephrosis and perinephric stranding; bladder calculi. Pt was admitted for evaluation and treatment for nephrolithiasis. Urology was consulted, who performed cystoscopy with left ureteral pigtail stent with removal of bladder calculi. Placement of the stent was confirmed post-procedure with abdominal x- ray and fluroscopy. Bladder calculi were sent to lab for further analysis. Post- procedure pt had mild hematuria and dysuria, but denied any suprapubic pain. Pain was controlled with medications. Today, pt was seen and examined at bedside. Pt states that hematuria is improved as well as the dysuria has subsided. Pt denied CP, SOB, n/v/d, chills, fever, abdominal pain, DEE, dizziness , dysuria, or polyuria. Urine was noted to be light pink and improved from yesterday. Pt was discharged and instructed to follow up with Dr. Castellon out- patient for lithotripsy and stent removal. Discharge Exam - Head Exam Head Exam: ATRAUMATIC, NORMOCEPHALIC - Eye Exam Eye Exam: EOMI, PERRL - ENT Exam ENT Exam: Mucous Membranes Moist - Neck Exam Neck exam: Full Rom - Respiratory Exam Respiratory Exam: Clear to PA & Lateral. absent: Rales, Rhonchi, Wheezes - Cardiovascular Exam Cardiovascular Exam: RRR, +S1, +S2. absent: Diastolic murmur, Gallop, Rubs, Systolic Murmur - GI/Abdominal Exam GI & Abdominal Exam: Soft. absent: Distended, Guarding, Rebound, Tenderness - Extremities Exam Extremities exam: normal inspection - Back Exam Back exam: NORMAL INSPECTION - Neurological Exam Neurological exam: Alert, CN II-XII Intact, Oriented x3 - Psychiatric Exam Psychiatric exam: Normal Affect, Normal Mood - Skin Skin Exam: Dry, Intact, Normal Color, Warm Discharge Plan - Follow Up Plan Condition: STABLE Disposition: HOME/ ROUTINE Instructions: Pneumococcal Vaccine for Adults (GEN), Kidney Stones (GEN), Cystoscopy (GEN), Lithotripsy (GEN), Heart Healthy Diet (DC), Ureteral Stent Placement (DC) Additional Instructions: 1. Call Dr. Castellon's office apon discharge for appointment for out-patient procedure 2. Follow up with PMD withing 1 week 3. Resume home medications as prescribed 4. Return to ED, if condition/symptoms worsen Referrals: Elton Castellon MD [Staff Provider] - Reymundo Watson MD [Staff Provider] - <Elio Saleem - Last Filed: 12/18/16 12:29> Provider - Provider Date of Admission: 12/16/16 17:09 Attending physician: Elio Saleem MD Primary care physician: NO PRIMARY CARE PROVIDER Hospital Course - Lab Results Lab Results: Most Recent Lab Values WBC 7.2 10^3/ul (4.5-11.0) 12/18/16 07:00 RBC 4.03 10^6/uL (3.5-6.1) 12/18/16 07:00 Hgb 12.0 g/dL (14.0-18.0) L 12/18/16 07:00 Hct 34.9 % (42.0-52.0) L 12/18/16 07:00 MCV 86.6 fl (80.0-105.0) 12/18/16 07:00 MCH 29.8 pg (25.0-35.0) 12/18/16 07:00 MCHC 34.4 g/dl (31.0-37.0) 12/18/16 07:00 RDW 12.5 % (11.5-14.5) 12/18/16 07:00 Plt Count 179 10^3/uL (120.0-450.0) 12/18/16 07:00 MPV 9.4 fl (7.0-11.0) 12/18/16 07:00 Gran % 74.8 % (50.0-68.0) H 12/18/16 07:00 Lymph % (Auto) 17.9 % (22.0-35.0) L 12/18/16 07:00 Titus % (Auto) 6.0 % (1.0-6.0) 12/18/16 07:00 Eos % (Auto) 1.2 % (1.5-5.0) L 12/18/16 07:00 Baso % (Auto) 0.1 % (0.0-3.0) 12/18/16 07:00 Gran # 5.39 (1.4-6.5) 12/18/16 07:00 Lymph # 1.3 (1.2-3.4) 12/18/16 07:00 Titus # 0.4 (0.1-0.6) 12/18/16 07:00 Eos # 0.1 (0.0-0.7) 12/18/16 07:00 Baso # 0.01 K/mm3 (0.0-2.0) 12/18/16 07:00 Neutrophils % (Manual) 87 % (50.0-70.0) H 12/16/16 14:14 Band Neutrophils % 2 % (0-2) 12/16/16 14:14 Lymphocytes % (Manual) 10 % (22.0-35.0) L 12/16/16 14:14 Monocytes % (Manual) 1 % (1.0-6.0) 12/16/16 14:14 Platelet Evaluation Normal (NORMAL) 12/16/16 14:14 Anisocytosis (manual) Slight 12/16/16 14:14 PT 11.3 Seconds (9.9-11.8) 12/16/16 14:14 INR 1.05 (0.93-1.08) 12/16/16 14:14 APTT 24.3 Seconds (23.7-30.8) 12/16/16 14:14 Sodium 141 mmol/L (132-148) 12/18/16 07:00 Potassium 3.6 mmol/L (3.6-5.0) 12/18/16 07:00 Chloride 110 mmol/L (98-107) H 12/18/16 07:00 Carbon Dioxide 24 mmol/L (21-33) 12/18/16 07:00 Anion Gap 11 (10-20) 12/18/16 07:00 BUN 16 mg/dL (7-21) 12/18/16 07:00 Creatinine 1.1 mg/dL (0.5-1.4) 12/18/16 07:00 Est GFR ( Amer) > 60 12/18/16 07:00 Est GFR (Non-Af Amer) > 60 12/18/16 07:00 Random Glucose 135 mg/dL (70-110) H 12/18/16 07:00 Calcium 8.3 mg/dL (8.4-10.5) L 12/18/16 07:00 Total Bilirubin 1.3 mg/dL (0.2-1.3) 12/18/16 07:00 AST 29 U/L (15-59) 12/18/16 07:00 ALT 40 U/L (7-56) 12/18/16 07:00 Alkaline Phosphatase 60 U/L (38-133) 12/18/16 07:00 Total Protein 5.4 g/dL (5.8-8.3) L 12/18/16 07:00 Albumin 3.1 g/dL (3.0-4.8) 12/18/16 07:00 Globulin 2.3 gm/dL 12/18/16 07:00 Albumin/Globulin Ratio 1.3 (1.1-1.8) 12/18/16 07:00 Lipase 223 U/L (23-300) 12/16/16 14:14 Urine Color Yellow (YELLOW) 12/16/16 17:15 Urine Appearance Clear (CLEAR) 12/16/16 17:15 Urine pH 6.0 (4.7-8.0) 12/16/16 17:15 Ur Specific [place] 1.020 (1.005-1.035) 12/16/16 17:15 Urine Protein Negative mg/dL (<30 mg/dL) 12/16/16 17:15 Urine Glucose (UA) 100 mg/dL (NEGATIVE) H 12/16/16 17:15 Urine Ketones Negative mg/dL (NEGATIVE) 12/16/16 17:15 Urine Blood Negative (NEGATIVE) 12/16/16 17:15 Urine Nitrate Negative (NEGATIVE) 12/16/16 17:15 Urine Bilirubin Negative (NEGATIVE) 12/16/16 17:15 Urine Urobilinogen 0.2 E.U./dL (<1 E.U./dL) 12/16/16 17:15 Ur Leukocyte Esterase Negative Josette/uL (NEGATIVE) 12/16/16 17:15 Attending/Attestation - Attestation I have personally seen and examined this patient.: Yes I have fully participated in the care of the patient.: Yes I have reviewed all pertinent clinical information, including history, physical exam and plan: Yes Notes (Text): 12/18/16 12:27 65 year old male with past medical history of dyslipidemia and nephrolithiasis who presented with complaint of suprapubic pain. He was found to have 8 mm proximal ureteral stone with moderate to sever hydronephrosis and perinephric stranding. He also had BELTRAN with creatinine of 1.5. He was NPO, on iv fluids, analgesics and antibiotics. He was seen by urology and s/p cystoscopy with stent placement yesterday. Today he reports improvement of symptoms. Kidney function also has improved. Patient will be discharged home today to follow up with his pmd Dr. Watson. Follow up with urology for outpatient follow up and stent removal. Elio Saleem MD Hospitalist.
[2016-12-18] MEDS: cefTRIAXone 1 gm 1 GM/100 ML BAG IVPB SCH (11:48)
== END 2016-12-18 14:22 | disposition home or self-care (01) | DRG 694 ==
LOC: ED 11:54 → ERH 17:09 → 5RSO 20:48
PROVIDERS: ADMIT Internal Medicine; ATTEND Internal Medicine
PROC: 0TCB8ZZ Extirpation of Matter from Bladder, Via Natural or Artificial Opening Endoscopic (ICD-10-PCS; principal; 2016-12-17 11:00)
PROC: 0T778DZ Dilation of Left Ureter with Intraluminal Device, Via Natural or Artificial Opening Endoscopic (ICD-10-PCS; 2016-12-17 11:00)
DX: N13.2 Hydronephrosis with renal and ureteral calculous obstruction (principal); N17.9 Acute kidney failure, unspecified; N21.0 Calculus in bladder; E78.5 Hyperlipidemia, unspecified; I25.2 Old myocardial infarction; Z79.82 Long term (current) use of aspirin; Z79.899 Other long term (current) drug therapy; Z83.3 Family history of diabetes mellitus; Z80.9 Family history of malignant neoplasm, unspecified; Z87.442 Personal history of urinary calculi; Z87.891 Personal history of nicotine dependence; M19.90 Unspecified osteoarthritis, unspecified site; D64.9 Anemia, unspecified; R40.2412 Glasgow coma scale score 13-15, at arrival to emergency department; Z87.898 Personal history of other specified conditions; R73.9 Hyperglycemia, unspecified; I10 Essential (primary) hypertension; I25.10 Atherosclerotic heart disease of native coronary artery without angina pectoris; N28.9 Disorder of kidney and ureter, unspecified